=== PATIENT | male | born 1955 | race Caucasian/White ===

== ENCOUNTER 2020-12-09 12:37 | Emergency (ER) | payer MEDICARE, OTHER ==
[2020-12-09 13:03] VITALS: BP 142/81; PULSE 80; O2SAT 97
[2020-12-09] MEDS ORDERED: Adacel Vial IM ONE ×2 (13:05→14:07)
--- NOTE | 2020-12-09 13:23 | XRAY ---
Indication: Pain and swelling. Foreign body. Comparison: None 2 view left forearm demonstrates punctate foreign body in soft tissues anterior to elbow. No other bony, articular, or soft tissue abnormalities.
--- NOTE | 2020-12-09 14:04 | ERPHSYRPT ---
- History of Present Illness Time Seen by Provider: 12/09/20 12:50 Source: patient Exam Limitations: no limitations Patient Subjective Stated Complaint: pt states he was hammering a piece of metal on his car and a piece flew off and hit his lt arm. states it bled a lot and swellied up. unsure of there is any metal still in his arm. Triage Nursing Assessment: pt alert and oriented, answers questions approp. pt ambulatory with steady gait noted. respirations nonlabored. skin warm and dry. hematoma to lt forearm with small puncture noted. Physician History: Patient is a 64-year-old male presents to our ED for evaluation of injury to his left midforearm. Patient states he was working on his car hammering some metal. A piece of metal ricocheted onto his left forearm and caused it to swell and bleed. Patient tetanus is not up-to-date. No other injuries reported. Pain described as an ache that is well localized. No radiation. Symptoms are mild to moderate in intensity. Pain worse with palpation pain improved with rest. Patient voices no other complaints or concerns at this time. Patient declined pain medication Occurred: just prior to arrival Method of Injury: direct blow Quality: constant, aching Severity of Pain-Max: mild Severity of Pain-Current: mild Extremities Pain Location: elbow: left Modifying Factors: Improves With: other (Palpation) Associated Symptoms: none Allergies/Adverse Reactions: No Known Drug Allergies Allergy (Unverified 12/09/20 13:03) Hx Tetanus, Diphtheria Vaccination/Date Given: No Hx Influenza Vaccination/Date Given: No Hx Pneumococcal Vaccination/Date Given: No Immunizations Up to Date: No Travel Risk - International Travel Have you traveled outside of the country in past 3 weeks: No - Coronavirus Screening Are you exhibiting any of the following symptoms?: No Close contact with a COVID-19 positive Pt in past 14-21 Days: No - Vaccine Status Have you recieved a Covid-19 vaccination: Yes Digitizer: Moderna - Vaccination Dates Date of 2cond Vaccination (if applicable): 05/06/20 - Review of Systems Constitutional: No Symptoms, No Fever, No Chills Eyes: No Symptoms Ears, Nose, & Throat: No Symptoms Respiratory: No Symptoms, No Cough, No Dyspnea Cardiac: No Symptoms, No Chest Pain, No Edema, No Syncope Abdominal/Gastrointestinal: No Symptoms, No Abdominal Pain, No Nausea, No Vomiting, No Diarrhea Genitourinary Symptoms: No Symptoms, No Dysuria Musculoskeletal: No Symptoms, No Back Pain, No Neck Pain Skin: No Symptoms, No Rash Neurological: No Symptoms, No Dizziness, No Focal Weakness, No Sensory Changes Psychological: No Symptoms Endocrine: No Symptoms Hematologic/Lymphatic: No Symptoms Immunological/Allergic: No Symptoms All Other Systems: Reviewed and Negative - Past Medical History Pertinent Past Medical History: Yes Cardiac History: Coronary Artery Disease - Past Surgical History Past Surgical History: No - Social History Smoking Status: Former smoker Exposure to second hand smoke: Yes Drug Use: none Patient Lives Alone: Yes Significant Family History: hypertension - Nursing Vital Signs Nursing Vital Signs: Initial Vital Signs Temperature 97.3 F 12/09/20 12:45 Pulse Rate 80 12/09/20 12:45 Respiratory Rate 16 12/09/20 12:45 Blood Pressure 142/81 12/09/20 12:45 O2 Sat by Pulse Oximetry 97 12/09/20 12:45 Pain Scale Pain Intensity 0 - Physical Exam General Appearance: no apparent distress, alert Eyes, Ears, Nose, Throat Exam: normal ENT inspection, TMs normal, pharynx normal, moist mucous membranes Neck Exam: normal inspection, non-tender, supple Cardiovascular/Respiratory Exam: chest non-tender, normal breath sounds, regular rate/rhythm, no respiratory distress Abdominal Exam: non-tender, soft, No guarding Back Exam: normal inspection, No vertebral tenderness Elbow/Forearm Exam: normal inspection, non-tender, no evidence of injury, normal ROM, swelling (Midshaft left forearm has contused skin and hematoma under the skin. No obvious foreign body. Extremities neurovascular intact distally. Cap refill less than 2 seconds. Radial pulse palpable. Compartments are soft) Wrist Exam: normal inspection, non-tender, no evidence of injury, normal ROM Hand Exam: normal inspection, non-tender, no evidence of injury, normal ROM Neuro/Tendon Exam: normal sensation, normal motor functions, normal tendon functions Mental Status Exam: alert, oriented x 3, cooperative Skin Exam: normal color, warm, dry SpO2 Interpretation: normal SpO2: 97 O2 Delivery: Room Air - Course Nursing assessment & vital signs reviewed: Yes - Radiology Exams Forearm X-ray Interpretation: Teleradiologist Report (Punctate foreign body in soft tissues anterior to the elbow. No other bony articular or soft tissue abnormalities.) Ordered Tests: Active Orders 24 hr Category Date Time Status FOREARM Stat Exams 12/09/20 Completed Medication Summary Discontinued Medications Generic Name Dose Route Start Last Admin Trade Name Anna PRN Reason Stop Dose Admin Diphtheria/Tetanus/Acell Pertussis 0.5 ml 12/09/20 13:05 Tdap --Diph,Pertuss(Acell),Tet Vac/Pf 0.5 Ml Vial IM 12/09/20 13:06 .ONCE ONE Diphtheria/Tetanus/Acell Pertussis Confirm 12/09/20 14:07 Tdap --Diph,Pertuss(Acell),Tet Vac/Pf 0.5 Ml Vial Administered 12/09/20 14:08 Dose 0.5 ml IM .STK-MED ONE - Progress Progress: improved Progress Note: Patient reassessed. He feels well. Patient declined pain medication. X-ray shows a punctate foreign body in the anterior aspect of the elbow. Patient has no symptoms at this location. There are no signs of trauma at this location. Patient has symptoms are at the midshaft left forearm. There is a contused skin with a hematoma. Extremities neurovascular tact distally. Tetanus updated. A prescription for Keflex was forwarded to patient's pharmacy. Will discharge home. Patient agrees to follow-up with his primary care doctor within 48 hours for reevaluation. He voices no other complaints at this time. Portions of this note were created with voice recognition technology. There may be grammatical, spelling, punctuation or sound alike errors 12/09/20 14:14 Counseled pt/family regarding: diagnosis, need for follow-up, rad results - Departure Departure Disposition: Home Clinical Impression: Contusion, Hematoma Condition: Stable Critical Care Time: No Referrals: ESMER MARAVILLA [Primary Care Provider] - Prescriptions: Cephalexin Mh 500 mg [Keflex 500 mg] 500 mg PO TID 7 Days #21 cap
== END 2020-12-09 14:24 | disposition home or self-care (01) ==
LOC: ED 12:37
DX: S50.12XA Contusion of left forearm, initial encounter (principal); S51.832A Puncture wound without foreign body of left forearm, initial encounter; M79.89 Other specified soft tissue disorders; W22.8XXA Striking against or struck by other objects, initial encounter; Y93.89 Activity, other specified; Y92.89 Other specified places as the place of occurrence of the external cause
CPT/HCPCS: 73090; 90471; 90715; 99283